=== PATIENT | male | born 1985 | race Caucasian/White ===

== ENCOUNTER 2021-06-22 13:19 | Emergency (ER) | payer SELFPAY ==
[~2021-06-22 13:19] MED LIST: BACTRIM DS TAB1 EACH PO; KEFLEX CAP 500500 MG PO
== END 2021-06-22 13:52 | disposition left against medical advice (07) ==
LOC: ER1 13:19
DX: Z53.21 Procedure and treatment not carried out due to patient leaving prior to being seen by health care provider (principal)

== ENCOUNTER 2021-07-14 14:42 | Inpatient (IN) | payer MEDICAID ==
[~2021-07-14] VITALS: Ht 167.6 cm; Wt 68.0 kg
[2021-07-14 15:23] LABS: HEMOGLOBIN 10.7 gm/dl (14.0-17.5); RED BLOOD COUNT 3.77 M/UL (4.20-5.50); WHITE BLOOD COUNT 12.2 K/UL (4.5-11.0)
[2021-07-14 15:50] LABS: BUN/CREATININE RATIO 23 (0-10)
[2021-07-14 21:52] LABS: BUN/CREATININE RATIO 18 (0-10)
[2021-07-15 02:28] LABS: HEMOGLOBIN 9.8 gm/dl (14.0-17.5); RED BLOOD COUNT 3.45 M/UL (4.20-5.50)
[2021-07-15 02:41] LABS: BUN/CREATININE RATIO 19 (0-10)
[2021-07-15 02:44] LABS: WHITE BLOOD COUNT 8.2 K/UL (4.5-11.0)
[2021-07-15 09:31] LABS: CANDIDA ALBICANS Not Detected (Negative); CANDIDA KRUSEI Not Detected (Negative); CANDIDA TROPICALIS Not Detected (Negative); ESCHERICHIA COLI Not Detected (Negative); HAEMOPHILUS INFLUENZAE Not Detected (Negative); KLEBSIELLA OXYTOCA Not Detected (Negative); KLEBSIELLA PNEUMONIAE Not Detected (Negative); KPC-CARBAPENEM-RESISTANCE GENE Not Detected (Negative); PROTEUS Not Detected (Negative); PSEUDOMONAS AERUGINOSA Not Detected (Negative); SERRATIA MARCESANS Not Detected (Negative); STAPHYLOCOCCUS Not Detected (Negative); STAPHYLOCOCCUS AUREUS Not Detected (Negative); STREP AGALACTIAE (GROUP B) Not Detected (Negative); vanA/B (VANCOMYCIN RESIST GENE Not Detected (Negative)
[2021-07-15 10:56] LABS: STREP PYOGENES (GROUP A) DETECTED (Negative); STREPTOCOCCUS DETECTED (Negative)
[2021-07-15 11:19] LABS: BUN/CREATININE RATIO 15 (0-10)
== END 2021-07-15 13:00 | disposition left against medical advice (07) | DRG 641 ==
LOC: ER1 14:42 → M/S 17:02 → CDU 17:02 → M/S 18:22
PROVIDERS: Physician Assistant; Preventive Medicine Occupational Medicine; ADMIT Internal Medicine
PROC: B24BZZZ Ultrasonography of Heart with Aorta (ICD-10-PCS; principal; 2021-07-15)
DX: E87.1 Hypo-osmolality and hyponatremia (principal); E86.0 Dehydration; B19.20 Unspecified viral hepatitis C without hepatic coma; F19.10 Other psychoactive substance abuse, uncomplicated; Z20.822 Contact with and (suspected) exposure to COVID-19; D64.9 Anemia, unspecified; E87.6 Hypokalemia; Z96.698 Presence of other orthopedic joint implants; Z87.891 Personal history of nicotine dependence; Z83.3 Family history of diabetes mellitus; Z80.9 Family history of malignant neoplasm, unspecified
CPT/HCPCS: ECHO; 36415; 51702; 71045; 80048; 80053; 80202; 80307; 81001; 82436; 82533; 82550; 82553; 83605; 83690; 83735; 83880; 83935; 84133; 84295; 84300; 84443; 84484; 85025; 85379; 85652; 86140; 87040; 87077; 87086; 87150; 93005; 93306; 96374; 99285; G0480; J0696; J2597; J3370; J7070; Q9967; U0002